=== PATIENT | female | born 2000 | race Caucasian/White ===

== ENCOUNTER 2019-11-10 02:49 | Inpatient (IN) | payer OTHER ==
[2019-11-10] VITALS (30 sets, daily range): BP systolic 108–147; BP diastolic 61–84
[~2019-11-10] VITALS: Ht 154.9 cm; Wt 78.1 kg
[2019-11-10] MEDS ORDERED: LR 1,000 ML IV SCH (04:04)
[2019-11-10] MEDS ORDERED: KP P1TAB PO (04:06)
[2019-11-10 04:15] LABS: HEMATOCRIT 34.4 % (36.0-47.0); HEMOGLOBIN 11.3 g/dl (12.0-15.5); MEAN CORPUSCULAR HGB CONC 32.8 g/dl (32.0-36.5); MEAN CORPUSCULAR VOLUME 88.2 fl (80.0-96.0); PLATELET COUNT, AUTOMATED 146 10^3/uL (150-450); WHITE BLOOD COUNT 7.5 10^3/uL (4.0-10.0)
[2019-11-10] MEDS ORDERED: LACTATED RINGER'S 1000 ML IV ONE (04:15)
[2019-11-10] MEDS ORDERED: FENTANYL 2MCG/ML ROPIVACAINE 0.2% IN 0.9% NACL 100ML IVBAG As Ordered ONE (05:02)
[2019-11-10] MEDS ORDERED: NALOXONE INJ 0.4MG/1ML VIAL (J2310 PER 1MG) IV PRN (05:13)
[2019-11-10] MEDS ORDERED: LACTATED RINGER'S 1000 ML IV PRN (05:13)
[2019-11-10] MEDS ORDERED: FENTANYL/ROPIVACAINE/NACL BAG 100 ML EPIDURAL SCH (05:13)
[2019-11-10] MEDS ORDERED: EPIDURAL COMMENT XX SCH (05:13)
[2019-11-10] MEDS ORDERED: diphenhydrAMINE 50MG/ML VIAL (J1200) IV PRN (05:13)
[2019-11-10] MEDS ORDERED: ONDANSETRON 4MG/2ML VIAL IV PRN (05:13)
[2019-11-10] MEDS ORDERED: EPIDURAL/PCA KEYS XX PRN (05:13)
[2019-11-10] MEDS ORDERED: REFRIGERATOR IV KEYS XX PRN (05:13)
[2019-11-10] MEDS ORDERED: ePHEDrine SULFATE 25 MG/5 ML(5MG/ML) SYRINGE IV PRN (05:13)
--- NOTE | 2019-11-10 08:18 | IPNPDOC ---
Obstetrical Progress Note Date of Service November 10, 2019 Subjective [place] of Care Received report from Dr. Espinoza during board sign out of Evert who is a 19yo at 41wks admitted in labor this morning. She is now s/p epidural and very comfortable, not feeling any contractions and denies any concerns. She was also AROMd at 0624 this morning with clear fluid. Objective O: VSS, afebrile, normotensive VE deferred; last was [address] Espinoza: 5/C/-1 FHR 130s, minimal variability, no accels, with Late and variable decelerations. Pt is currently receiving LR bolus and was repositioned to her left lateral with peanut ball. CTX by TOCO: Irregular, q 2-5 minutes Vital Signs Date Time Temp Pulse Resp B/P (MAP) Pulse Ox O2 Delivery O2 Flow Rate FiO2 11/10/19 07:31 85 18 125/66 (85) 11/10/19 07:16 97.8 Assessment Heart Rate Tracing: Category II Assessment and Plan Group B Streptococcus: Negative Anticipate: Vaginal Delivery Additional Comments A: 19yo in active labor, Category II FHT with interventions ongoing P: CEFM x2 Close maternal/ monitoring Plan to start pitocin augmentation if no progress with next exam Continue interventions for Category II FHT Safe to proceed Consult with OB if indicated Anticipate VANDANA WONG CNM November 10, 2019 08:18
[2019-11-10] MEDS ORDERED: OXYTOCIN 30 UNITS IN 0.9% NaCl 500ML IV BAG (J2590) As Ordered ONE (09:58)
[2019-11-10] MEDS ORDERED: OXYTOCIN DRIP 30 UNITS in IV 1 EA IV SCH (10:37)
[2019-11-10] MEDS ORDERED: miSOPROStol 200 MCG TAB (S0191) PR ONE (10:45)
[2019-11-10] MEDS ORDERED: LIDOCAINE 1% MDV 20ML VIAL INFIL ONE (10:45)
[2019-11-10] MEDS ORDERED: ACETAMINOPHEN 500 MG TAB PO PRN (10:45)
[2019-11-10] MEDS ORDERED: IBUPROFEN 800 MG TAB PO PRN (10:45)
[2019-11-10] MEDS ORDERED: ACETAMINOPHEN TAB 650MG DOSE (2X325MG) PO PRN (10:45)
--- NOTE | 2019-11-10 11:23 | DNPDOC ---
[facility] Delivery Note Delivery Note DATE OF DELIVERY: 11/10/2019 at 9:46 AM. PREDELIVERY DIAGNOSIS: 41+0/7 weeks' gestation and labor. POST DELIVERY DIAGNOSIS: Delivered. PROCEDURE: Spontaneous Vaginal Delivery. FARM OPERATIONS MANAGER: Dr. SHAYAN Wong ANESTHESIA: Epidural and 1% Lidocaine. ESTIMATED BLOOD LOSS: 300 mL. FINDINGS: 8 pound 3 ounce (3700g) female infant, Score 9/9. DELIVERY SUMMARY: Called to room for expectant delivery of rachael Loyd 19yo at 41wks admitted this AM in labor; she did receive an epidural, but her pain was not adequately controlled. She quickly progressed to C/C/+1 and had uncontrollable urge to push. She effectively pushed to deliver a viable female over a protected perineum. Infant head delivered MARCELLA and restituted to ROT; left anterior shoulder delivered with ease, followed by right posterior shoulder, then remainder of body delivered to maternal abdomen where she was dried and stimulated; strong, lusty cry. Once cord stopped pulsating, clamped x2 and cut by FOB. Placenta delivered spontaneously and appeared intact, 3VC. Pitocin bolus was delayed d/t not being available in room. Fundus was firm, but bleeding was brisk; 1000mcg placed rectally and pitocin bolus started; bleeding quickly slowed to minimal. Upon inspection of vagina, perineum, and cervix, a shallow 2nd midline perineal laceration noted and repaired in usual fashion with 3-0 monocryl; a left labial laceration was repaired with 4-0 monocryl; hemostasis achieved. Family bonding well; anticipate uncomplicated PP course. VANDANA WONG CNM November 10, 2019 11:23
[2019-11-10] MEDS: PRENATAL VITAMINS CHEWABLE TABLET PO SCH (12:57)
--- NOTE | 2019-11-10 14:09 | HPE ---
DATE OF ADMISSION: 11/10/2019 This is a 19-year-old, 1, para 0, last menstrual period (LMP) 01/27/2019, expected date of confinement (EDC) 11/03/2019, at 41 weeks of gestation, in active labor. Labs: B+. HIV negative. Hepatitis negative. RPR negative. Rubella immune. Varicella immune. Urine negative. Gonorrhea and chlamydia negative. 1-hour glucose 125. GBS is negative. COVID is negative. Blood pressure is 134/72, respirations 18, pulse 84, temperature 97.4. Urine is 1.050, pH 7, and trace blood. On examination, distressed female. Symphysis fundus height is 40, vertex, occiput anterior (OA), 5 cm, bulging membranes. Category one strip. The rest of the examination unremarkable. She is normocephalic, atraumatic. Neck full range of motion. Pupils equal and reactive to light. Distal pulses symmetric. No evidence of deep vein thrombosis (DVT), pulmonary embolism (PE) or superficial phlebitis. Chest is clear bilaterally to bases. No wheezes or rhonchi. No CVA tenderness. Four quadrant bowel sounds are noted. No rashes, lesions or pruritus. She does have tattoos. No arthralgia or myalgia. No complaint of joint pain. No complaint of cough, wheeze, shortness of breath or dyspnea on exertion. No infections. No bleeding. Neuro complete. No incontinency, urgency or frequency. No nausea, vomiting, diarrhea or constipation. No heat or cold sensitivities. No diabetic issues. She has no ANALYSIS EVALUATOR issues. No abnormal Pap smears. No STDs. Past medical and surgical history unremarkable. Family history noncontributory. She does not smoke, drink or abuse drugs. She is . No domestic violence. Allergies: PENICILLIN. We discussed the consent for vaginal delivery which is delivery of the baby through the vagina with possibility of use of forceps or vacuum devices if needed for maternal or indications. These are devices that can assist with vaginal delivery when normal pushing efforts cannot achieve a delivery on their own or when delivery is needed for an emergency for the baby's well-being. Medications used may require to induce or augment labor, help labor to achieve normal vaginal delivery and episiotomy may be required to help baby deliver vaginally. May also require repair of any lacerations or tears of the vagina or the vulva that are caused by delivery. In some cases, emergencies can arise and require emergency section. These are done for medical reasons only and will be discussed with her provider. The surgery is necessary because it may be safer for mother and baby than continuing labor and only performed when clinically indicated. Risks of vaginal delivery include, not limited to bleeding, infection, injury to the vagina, pelvic structures, injury to baby, damage to the uterus, reaction to anesthesia. uterine rupture, risk of hysterectomy for life threatening bleeding issues, or even . Medications used to induce or augment labor increase risk of infection, uterine tachysystole, uterine rupture, heart rate abnormalities, need for emergency section, possibly hysterectomy for bleeding. Additional risks for the use forceps or vacuums may include scratches, hematomas to the head or intracranial bleeding. The patient verbalized understanding. Safe to proceed. We plan on hydrating the patient. Epidural as required.
[2019-11-10] MEDS: DIBUCAINE 1% OINTMENT 30GM TOP PRN (17:58)
[2019-11-10] MEDS: IBUPROFEN 600 MG TAB PO PRN (17:59)
[2019-11-10] MEDS: DOCUSATE SODIUM 100 MG CAP PO PRN (22:05)
[2019-11-11 06:00] VITALS: BP 135/72
--- NOTE | 2019-11-11 06:29 | IPN ---
DATE: 11/09/2019 This lady is a 1, para 0, at 41 weeks who came in, in active labor, who is 5 cm, 100% effaced, -2 station. Artificial rupture of membranes (AROM) was done, draining clear liquid. Category one strip. Epidural is working well. Anticipate progress.
[2019-11-11] MEDS: IBUPROFEN 600 MG TAB PO PRN ×2 (08:15→21:29)
[2019-11-11] MEDS: PRENATAL VITAMINS CHEWABLE TABLET PO SCH (08:15)
[2019-11-11 10:00] VITALS: BP 149/63
--- NOTE | 2019-11-11 15:34 | IPNPDOC ---
Progress Note Date of Service: November 11, 2019 Day#: 1 Progress Note SUBJECT: Evert is a 19yo G1 now P1001 status post uncomplicated spontaneous v aginal delivery at 41+0/7 weeks' at approximately 0946 hours on [id number] of a male , 8lbs 3oz, with 2nd degree perineal and left labial laceration and repair, doing well day #1. She has been ambulating, voiding spontaneously without issue and tolerating regular diet. Breast feeding without issue. Reports lochia is light. OBJECTIVE: VITAL SIGNS: Within normal limits, afebrile. Alert and oriented times three. Observed nonlabored breathing. Heart rate: Regular rate. Abdomen: Fundus firm at U-1. Soft. Minimal lochia. ASSESSMENT: PP Day #1, normal involution, stable and progressing well. Exclusively and doing well; has been assessed by . PLAN: 1. Routine PP care. 2. Tylenol and Motrin for pain. 3. Encourage breast feeding and ambulation. 4. Plan to Discharge home tomorrow on PP Day #2. VS, I&O, 24H, Fishbone Vital Signs/I&O Vital Signs Date Time Temp Pulse Resp B/P (MAP) Pulse Ox O2 Delivery O2 Flow Rate FiO2 11/11/19 10:00 I&O- Last 24 Hours up to 6 AM 11/11/19 06:00 Intake Total 841.6 ml Output Total 1825 ml Balance -983.4 ml VANDANA WONG CNM November 11, 2019 15:34
[2019-11-11 18:00] VITALS: BP 125/67
[2019-11-11] MEDS ORDERED: MOM 30ML SUSPENSION UDC PO PRN (21:15)
[2019-11-11] MEDS: DOCUSATE SODIUM 100 MG CAP PO PRN (21:28)
[2019-11-11] MEDS: DIBUCAINE 1% OINTMENT 30GM TOP PRN (21:29)
[2019-11-12 06:00] VITALS: BP 104/58
[2019-11-12] MEDS: PRENATAL VITAMINS CHEWABLE TABLET PO SCH (08:27)
--- NOTE | 2019-11-12 09:48 | IPNPDOC ---
Progress Note Date of Service: November 12, 2019 Day#: 2 Progress Note SUBJECT: Evert is a 19yo G1 now P1001 status post uncomplicated spontaneous v aginal delivery at 41+0/7 weeks' at approximately 0946 hours on [id number] of a male , 8lbs 3oz, with 2nd degree perineal and left labial laceration and repair, doing well day #2. She has been ambulating, voiding spontaneously without issue and tolerating regular diet. Breast feeding without issue. Reports lochia is light. OBJECTIVE: VITAL SIGNS: Within normal limits, afebrile. Alert and oriented times three. Observed nonlabored breathing. Heart rate: Regular rate. Abdomen: Fundus firm at U-2. Soft. Minimal lochia. ASSESSMENT: PP Day #2, normal involution, stable and progressing well. Exclusively and doing well; has been assessed by . PLAN: 1. Discharge to home today. 2. Tylenol and Motrin for pain. 3. Encourage frequent breast feeding and ambulation. 4. Desires to wait for control. 5. Routine PP visit in 6 weeks in clinic. 6. Discussed return precautions at length. VS, I&O, 24H, Fishbone Vital Signs/I&O Vital Signs Date Time Temp Pulse Resp B/P (MAP) Pulse Ox O2 Delivery O2 Flow Rate FiO2 11/12/19 06:00 97.2 108 20 104/58 (73) 97 Room Air VANDANA WONG CNM November 12, 2019 09:48
--- NOTE | 2019-11-12 09:53 | OBDS ---
[facility] Obstetrical Discharge Sum. Obstetrical Discharge Summary Date: November 12, 2019 Time: 09:48 : 1 Term: 1 Pre-term: 0 Abortions: 0 Livin VDRL: Non-Reactive Sex: Female Infant Weight: pounds (8), ounces (3), grams (3700) Anesthesia: Other (Epidural and 1% lidocaine) A/P, Post Course List any complications Admission diagnosis: Labor Discharge diagnosis: s/p Uncomplicated Condition at Discharge: Stable Discharge Instructions: Nothing in vagina for 6 weeks, frequent and ambulation; hydration of 1 gallon of water/day. Activity: Increase as tolerated. Diet: Regular, calorie rich Medications: Tylenol and Motrin PRN Follow-up: 6 weeks routine PP exam at [facility] VANDANA WONG CNM November 12, 2019 09:53
[2019-11-12] MEDS ORDERED: DOCU100C16 PO (09:57)
[2019-11-12] MEDS ORDERED: ACET-683 PO (09:57)
[2019-11-12] MEDS ORDERED: IBUP-1022 PO (09:57)
== END 2019-11-12 12:30 | disposition home or self-care (01) | DRG 807 ==
LOC: M LDI 02:49 → M OBS 15:32
PROVIDERS: ADMIT Obstetrics & Gynecology; ATTEND Registered Nurse Maternal Newborn
PROC: 10E0XZZ Delivery of Products of Conception, External Approach (ICD-10-PCS; principal; 2019-11-10)
PROC: 0KQM0ZZ Repair Perineum Muscle, Open Approach (ICD-10-PCS; 2019-11-10)
PROC: 10907ZC Drainage of Amniotic Fluid, Therapeutic from Products of Conception, Via Natural or Artificial Opening (ICD-10-PCS; 2019-11-10)
DX: O48.0 Post-term pregnancy (principal); Z37.0 Single live birth; Z3A.41 41 weeks gestation of pregnancy

== ENCOUNTER 2020-12-07 13:36 | Emergency (ER) | payer OTHER ==
[~2020-12-07] VITALS: Ht 154.9 cm; Wt 63.6 kg
[~2020-12-07 13:36] MED LIST: ACET-683 PO; DOCU100C16 PO; IBUP-1022 PO; KP P1TAB PO
[2020-12-07] MEDS ORDERED: ONDANSETRON 4MG/2ML VIAL IV ONE (16:40)
[2020-12-07] MEDS ORDERED: NS 1,000 ML IV ONE (16:40)
[2020-12-07] MEDS ORDERED: KETOROLAC 30 MG/ML 1ML VIAL IV ONE (16:40)
[2020-12-07 17:35] LABS: BASO % 0.5 % (0.0-1.0); EOS # 0.2 10^3/uL (0.0-0.5); EOS % 2.2 % (0.0-3.0); HEMATOCRIT 44.2 % (36.0-47.0); HEMOGLOBIN 14.4 g/dl (12.0-15.5); LYMPH # 2.7 10^3/uL (1.5-5.0); LYMPH % 34.8 % (24.0-44.0); MEAN CORPUSCULAR HEMOGLOBIN 29.6 pg (27.0-33.0); MEAN CORPUSCULAR HGB CONC 32.6 g/dl (32.0-36.5); MEAN CORPUSCULAR VOLUME 90.9 fl (80.0-96.0); MONO # 0.3 10^3/uL (0.0-0.8); MONO % 4.3 % (2.0-8.0); NEUTROPHILS # 4.5 10^3/uL (1.5-8.5); NEUTROPHILS % 57.9 % (36.0-66.0); PLATELET COUNT, AUTOMATED 242 10^3/uL (150-450); RED BLOOD COUNT 4.86 10^6/uL (4.00-5.40); WHITE BLOOD COUNT 7.8 10^3/uL (4.0-10.0)
[2020-12-07 17:43] LABS: CK-MB VALUE MASS < 1.0 NG/ML (<3.6); CPK CREATINE PHOSPHOKINASE 59 U/L (26-192); FREE T4 1.09 NG/DL (0.76-1.46); MAGNESIUM LEVEL 2.3 MG/DL (1.8-2.4); MB/CK RELATIVE INDEX 1.69 (< OR =4); TROPONIN I < 0.02 NG/ML (< 0.10)
--- NOTE | 2020-12-07 18:20 | REPVR ---
PROCEDURE INFORMATION: Exam: CT Cervical Spine Without Contrast Exam date and time: 12/07/2020 5:51 PM Age: 20 years old Clinical indication: Pain; Other: Headache, dizziness; Additional info: Headache/dizziness TECHNIQUE: Imaging protocol: Computed tomography images of the cervical spine without contrast. Radiation optimization: All CT scans at this facility use at least one of these dose optimization techniques: automated exposure control; mA and/or kV adjustment per patient size (includes targeted exams where dose is matched to clinical indication); or iterative reconstruction. COMPARISON: No relevant prior studies available. FINDINGS: Bones/joints: No acute fracture. Normal alignment. Discs/Spinal canal/Neural foramina: No significant disc protrusion. No severe spinal canal stenosis. No significant neural foraminal narrowing. Lungs: Lung apices are normal. Soft tissues: Unremarkable. IMPRESSION: No acute findings. Electronically signed by: Tim Cha On 12/07/2020 18:19:57 PM
--- NOTE | 2020-12-07 18:21 | REPVR ---
PROCEDURE INFORMATION: Exam: CT Head Without Contrast Exam date and time: 12/07/2020 5:51 PM Age: 20 years old Clinical indication: Pain; Headache not specified; Additional info: Headache/dizziness TECHNIQUE: Imaging protocol: Computed tomography of the head without contrast. Radiation optimization: All CT scans at this facility use at least one of these dose optimization techniques: automated exposure control; mA and/or kV adjustment per patient size (includes targeted exams where dose is matched to clinical indication); or iterative reconstruction. COMPARISON: No relevant prior studies available. FINDINGS: Brain: Normal. No hemorrhage. Unremarkable white matter. No mass effect. Cerebral ventricles: No ventriculomegaly. Paranasal sinuses: Visualized sinuses are unremarkable. No fluid levels. Mastoid air cells: Visualized mastoid air cells are well aerated. Bones/joints: Unremarkable. No acute fracture. Soft tissues: Unremarkable. Nasal cavity: Shawna bullosa on the left. IMPRESSION: No acute findings. Electronically signed by: Tim Cha On 12/07/2020 18:21:40 PM
[2020-12-07 19:45] VITALS: BP 121/76
--- NOTE | 2020-12-07 19:55 | ECGEPIP ---
[facility] - ED Test Date: 2020-12-07 Pat Name: ELIECER POLK Department: Room: - Gender: Female Network Designer: NEREIDA : 2000 Requested By: MONICA MURPHY PA-C Order Number: [id number] Reading MD: Heaven Balderrama Measurements Intervals [place] Rate: 85 P: 39 CT: 146 QRS: 73 QRSD: 72 T: 49 QT: 390 QTc: 464 Interpretive Statements Normal sinus rhythm with sinus arrhythmia No prior Electronically Signed on 12-07-2020 19:54:55 EDT by Heaven Balderrama
== END 2020-12-07 19:48 | disposition home or self-care (01) ==
LOC: M ED 13:36
DX: R51.9 Headache, unspecified (principal)
CPT/HCPCS: 70450; 72125; 80047; 82550; 82553; 83735; 84439; 84443; 84484; 84702; 85025; 85379; 93005; 96361; 96374; 96375; 99284; J1885; J2405